=== PATIENT | female | born 1935 | race Caucasian/White ===

== ENCOUNTER → 2017-05-02 | Day surgery (SDC) | payer MEDICARE, BC ==
[~2017-05-02] MED LIST: ACTOS15 MG PO; ALENDRONATE SOD70 MG PO; CELEXA PO; IMODIUM2 MG PO; KLOR-CON PO; LASIX20 MG PO; LEVOTHYROXINE50 MCG PO; LIBRIUM PO; LISINOPRIL10 MG PO; MAXZIDE 75/50 T1 TAB PO; MOTION RELIEF25 MG PO; PRAVACHOL80 MG PO; PREVACID PO; ROBINUL FORTE2 MG PO; VITAMIN D350000 UNIT PO; ZETIA PO
--- NOTE | ~2017-05-02 | OR ---
Unit #: [id number] #: [id number] Patient: ROSANNE MULLIGAN [id number] [address] [place], [place] [address] [id number] O MR#: [id number] NAME: ROSANNE MULLIGAN ROOM: Date of Procedure: 05/02/2017 Admission Date: 05/02/2017 Surgeon: Adiel Kaplan Jr., M.D. : 1935 Attending Physician: Adiel Kaplan Jr., M.D. Primary Care Physician: Iván Kerr M.D. OPERATIVE REPORT INDICATION FOR PROCEDURE The patient is an 82-year-old white female, who recently presented to the office after being checked by Dr. Kerr and noted to have a positive Cologuard test for heme-positive stools. She is brought in this time for upper and lower endoscopy. She has had previous scopes, but over 10 years ago. PREOPERATIVE DIAGNOSES Gastrointestinal bleed etiology? On upper endoscopy, the esophagogastroduodenoscopy was normal. On colonoscopy, the scope could be passed to approximately 30 to 35 cm, but there was an obvious kink in the colon that would not allow for advancement of the scope. The lower part of the colon checked with the scope was normal. There were a few small internal hemorrhoids. ANESTHESIA MAC anesthesia. PROCEDURES PERFORMED Flexible fiberoptic esophagogastroduodenoscopy and flexible colonoscopy to 35 cm. DESCRIPTION OF PROCEDURE The patient was positioned in Camacho position with left side down. After being given MAC anesthesia, the Olympus XQ scope was passed in the proximal esophagus. The entire esophagus was examined. Proximal two-thirds appeared normal. In the area of the distal esophagus, there was normal mucosa with no evidence of any esophagitis or stenosis. The scope was advanced through the GE junction into the cardia, and down to the fundic and antral region of the stomach, retroflexed back up to the area of the cardia, there was no significant hiatal hernia present. The stomach distended well without evidence of rigidity. There was no evidence of any gastric ulcer disease. The scope was advanced down the prepyloric region through the pylorus and the duodenal bulb and down to the second portion of the duodenum. The entire duodenal portion examination was within normal limits. The scope was then slowly removed. The patient repositioned for colonoscopy. Digital rectal examination was performed, which revealed no palpable mass or tenderness. No blood or stool in the rectal ampulla. The Olympus colonoscope was advanced through the anal canal up the rectum and retroflexed down to the area of the anorectal region. There were some small internal hemorrhoidal tags felt to be of no major significance. No evidence of any fissures. The scope Unit #: [id number] #: [id number] Patient: ROSANNE MULLIGAN was then straightened and advanced up in the rectosigmoid, up in the sigmoid and at approximately 30 to 35 cm, there was over a 90-degree angle kink of the colon, which would not allow for passage of the scope. Multiple attempts were made, but scope was then slowly retracted with no evidence of any injuries to the colon. The scope was removed. It was felt the patient will need an air contrast barium enema to check up the rest of the colon. The patient was discharged in satisfactory condition. Dictated by... Adiel Kaplan Jr., MMelissa. FABIAN/garo TD: 05/03/2017 03:43 JOB #: [id number] OPERATIVE REPORT Page 1 of 1 X Adiel Kaplan MD X PROCEDURE OPERATIVE NOTE
--- NOTE | ~2017-05-02 | CR43 ---
[facility] A Service [facility] RADIOLOGY TEXT RESULTS PATIENT: ROSANNE MULLIGAN LOCATION: [facility] : 37 UNIT #: [id number] AGE: [address]: Adiel Kaplan MD SEX: F ORDER DR: [id number] [facility]. [place], [place] [address] [id number] O MR#: [id number] Acc #: [id number] NAME: ROSANNE MULLIGAN : 1935 SEX: F STUDY DATE/TIME: 05/02/2017 15:16 UNIT: [facility] ROOM: STUDY DESCRIPTION: CR Barium Enema W Air Attending Physician: Adiel Kaplan Jr., M.D. Ordering Physician: Adiel Kaplan Jr., M.D. Primary Care Physician: Iván Kerr M.D. MEDICAL IMAGING REPORT This report is preliminary unless electronic signature is present EXAMINATION Air-contrast barium enema with fluoroscopy. DATE 05/02/2017 HISTORY Incomplete colonoscopy today due to kinking of the sigmoid colon. Barium enema requested. COMPARISON CT abdomen and pelvis, 11/27/2006. FINDINGS Carpet Or Rug Layer Helper film of the abdomen demonstrates mild generalized gaseous distension of large and small bowel. Multiple surgical clips are demonstrated in the pelvis. Cholecystectomy changes are also present. Rectal tube was placed and the balloon was insufflated gently under fluoroscopic visualization. Thin barium was advanced in a retrograde fashion to the level of the cecum. The contrast was allowed to drain, and careful hand insufflation was performed of the colon. Due to the patient's significantly redundant sigmoid colon, quite a bit of the contrast remained within the colon, somewhat hampering good quality air contrast study. However, allowing for this, no gross high-grade stricture, mass lesion or other intraluminal filling defects are identified. Contrast opacifies the colon through the level of the cecum. No significant diverticular changes are identified, either. Twenty-three fluoroscopic images were obtained, and 2.8 minutes of fluoroscopy time was utilized. [facility] A Service [facility] RADIOLOGY TEXT RESULTS PATIENT: ROSANNE MULLIGAN LOCATION: [facility] : 37 UNIT #: [id number] AGE: [address]: Adiel Kaplan MD SEX: F ORDER DR: IMPRESSION 1. Unremarkable air contrast barium enema. Quite a bit of the contrast was retained in the colon during this examination due to the significant tortuosity of the sigmoid segment. Dictated by... Daisha Elmore M.D. THIS IS AN ELECTRONICALLY VERIFIED REPORT Daisha Elmore M.D. at 05/03/2017 8:34 AM RAND/estrella TD: 05/02/2017 22:49 JOB #: [id number] MEDICAL IMAGING REPORT Page 1 of 1 COPY
== END | disposition home or self-care (01) ==
LOC: COPS 10:40
DX: K92.2 Gastrointestinal hemorrhage, unspecified (principal); K64.8 Other hemorrhoids; K21.9 Gastro-esophageal reflux disease without esophagitis; E03.9 Hypothyroidism, unspecified; F32.9 Major depressive disorder, single episode, unspecified; I10 Essential (primary) hypertension; E78.00 Pure hypercholesterolemia, unspecified; K58.9 Irritable bowel syndrome, unspecified; Z90.49 Acquired absence of other specified parts of digestive tract; Z90.710 Acquired absence of both cervix and uterus; Z98.890 Other specified postprocedural states; Z88.0 Allergy status to penicillin; Z88.8 Allergy status to other drugs, medicaments and biological substances; Z79.899 Other long term (current) drug therapy
CPT/HCPCS: 74280; 82947; J2250